=== PATIENT | female | born 1990 | race African-American/Black ===

== ENCOUNTER 2024-12-06 18:46 | Emergency (ER) | payer MEDICARE, OTHER, SELFPAY | END 2024-12-06 20:51 | disposition home or self-care (01) | LOC: ERS 18:46 | DX: S43.401A Unspecified sprain of right shoulder joint, initial encounter (principal); W20.8XXA Other cause of strike by thrown, projected or falling object, initial encounter; Y92.009 Unspecified place in unspecified non-institutional (private) residence as the place of occurrence of the external cause | CPT/HCPCS: 96372; 99283; J2270 ==